=== PATIENT | male | born 1965 | race Caucasian/White ===

== ENCOUNTER 2017-05-27 23:04 | Emergency (ER) | payer MEDICARE ==
[~2017-05-27] VITALS: Ht 175.3 cm; Wt 169.6 kg
[~2017-05-27 23:04] MED LIST: ALBUTEROL SUL0.083 % IN; ALPRAZOLAM1 M1 PO; AMLODIPINE5 MG OR; AMLODIPINE5 MG PO; ATENOLOL25 MG PO; ATENOLOL50 MG PO; ATROVENT I0.5 MG/VIA IN; AVELOX400 MG OR; BUSPIRONE10 MG PO; CARDIZEM CD120 M1 PO; CARDIZEM CD240 MG PO; CHERATUSSIN PO; CIPRO500 MG PO; CIPROFLOXACN500 MG PO; CLINDAMYCIN150 MG PO; CLINDAMYCIN300 M1 PO; DIGOXIN0.125 MG PO; DILTIAZEM60 M1 PO; DUONEB IN; DUONEB NEB; EQ ASPIRIN325 MG PO; FLONASE0.05 %; FLUARIX QUADRIV1 IN1 IM; LASIX 40 MG TAB40 MG PO; LASIX40 MG PO; LEVAQUIN750 MG PO; LEXAPRO10 MG PO; LEXAPRO20 MG PO; LISINOP/HCTZ1 TA1 PO; LOSARTAN POT50 MG PO; MEDDOSEPAK OR; METHYLPRED4 M1 PO; METOPROL TAR25 MG PO; METOPROLOL TART50 MG PO; NO HOME MEDS; NORCO1 TA1 PO; PREDNISONE10 MG PO; PREDNISONE20 MG PO; PRILOSEC40 MG PO; PROVENTIL HFA IN; QVAR80 MCG IN; ROBITUSSIN AC10 ML PO; SOLU-MEDROL125 MG IM; TRAMADOL HCL50 MG PO; VENTOLIN HF1 IN; VENTOLIN HFA; XANAX0.5 MG PO; XARELTO10 MG PO; ZITHROMAX250 MG PO; ZITHROMAX500 MG PO
[2017-05-28] MEDS ORDERED: CLEOCIN150 MG PO (00:02)
[2017-05-28] MEDS ORDERED: PERCOCET 5/325M1 TAB PO (00:02)
[2017-05-28 01:10] VITALS: BP 143/88
== END 2017-05-28 01:10 | disposition home or self-care (01) ==
LOC: ED 23:04
DX: S90.212A Contusion of left great toe with damage to nail, initial encounter (principal); K21.9 Gastro-esophageal reflux disease without esophagitis; F32.9 Major depressive disorder, single episode, unspecified; I10 Essential (primary) hypertension; J44.9 Chronic obstructive pulmonary disease, unspecified; E66.01 Morbid (severe) obesity due to excess calories; I48.91 Unspecified atrial fibrillation; W22.8XXA Striking against or struck by other objects, initial encounter

== ENCOUNTER 2017-07-20 17:34 | Inpatient (IN) | payer MEDICARE ==
[~2017-07-20] VITALS: Ht 175.3 cm; Wt 158.4 kg
[~2017-07-20 17:34] MED LIST changes: +CLEOCIN150 MG PO; +PERCOCET 5/325M1 TAB PO
[2017-07-20] MEDS ORDERED: DILT-XR120 MG PO (17:56)
[2017-07-20] MEDS ORDERED: OMEPRAZOLE10 MG PO (17:57)
[2017-07-20] MEDS ORDERED: XARELTO10 MG PO (17:57)
[2017-07-20] MEDS ORDERED: K-TABS10 MEQ PO (18:01)
[2017-07-20] MEDS ORDERED: KLONOPIN0.5 MG PO (18:02)
[2017-07-20] MEDS ORDERED: LOSARTAN POT50 MG PO (18:02)
[2017-07-20 18:36] LABS: ALBUMIN 4.3 g/dL (3.2-5.0); ALKALINE PHOSPHATASE 119 u/l (38-126); ANION GAP 18 (6-22 (CALC)); BILIRUBIN, TOTAL 0.7 mg/dL (0.0-1.4); BUN 12 mg/dL (9-20); BUN/CREATININE RATIO 15 (12-20 (CALC)); CARBON DIOXIDE 25 mmol/l (22-30); CHLORIDE 101 mmol/l (95-108); CREATININE 0.8 mg/dL (0.7-1.3); GFR > 60 ML/MIN (>=60 (CALC)); GFR FOR AFR.AMER. > 60 ML/MIN (>=60 (CALC)); POTASSIUM 4.5 mmol/l (3.5-5.1); SGOT/AST 27 u/l (17-59); SGPT/ALT 32 u/l (21-72); SODIUM 140 mmol/l (137-146); TOTAL PROTEIN 7.2 g/dL (6.3-8.2)
[2017-07-20 18:47] LABS: MYOGLOBIN 56 ng/mL (0 - 121)
[2017-07-20 19:16] LABS: HEMATOCRIT 50.4 % (39.0-50.0); HEMOGLOBIN 16.6 g/dl (14.0-18.0); IMMATURE GRANULOCYTES 0.5 % (0.0-1.0); MEAN CELL VOLUME 79.4 fL CALC (80.0-100.0); MEAN CORPUSCULAR HGB 26.1 pG CALC (26.0-32.0); MEAN CORPUSCULAR HGB CONC 32.9 g/L CALC (32.0-36.0); NEUT# 6.45 thou/uL (1.82-7.42); RED BLOOD COUNT 6.35 mill/uL (4.70-6.10); RED CELL DISTRI WIDTH 13.9 % (11.5-15.5)
[2017-07-20 19:24] LABS: INFLUENZA A NONE DETECTED (NONE DETECT); INFLUENZA B NONE DETECTED (NONE DETECT)
[2017-07-20 21:45] VITALS: BP 150/88
[2017-07-21 03:53] VITALS: BP 137/95
[2017-07-21 08:12] VITALS: BP 145/80
[2017-07-21 15:33] VITALS: BP 152/66
[2017-07-21 19:01] VITALS: BP 163/90
[2017-07-22 05:02] VITALS: BP 132/52
[2017-07-22 05:37] LABS: HEMATOCRIT 50.1 % (39.0-50.0); HEMOGLOBIN 16.8 g/dl (14.0-18.0); MEAN CELL VOLUME 80.2 fL CALC (80.0-100.0); MEAN CORPUSCULAR HGB 26.9 pG CALC (26.0-32.0); MEAN CORPUSCULAR HGB CONC 33.5 g/L CALC (32.0-36.0); RED BLOOD COUNT 6.25 mill/uL (4.70-6.10); RED CELL DISTRI WIDTH 14.1 % (11.5-15.5)
[2017-07-22 05:54] LABS: ANION GAP 21 (6-22 (CALC)); BUN 17 mg/dL (9-20); BUN/CREATININE RATIO 23 (12-20 (CALC)); CARBON DIOXIDE 25 mmol/l (22-30); CHLORIDE 97 mmol/l (95-108); CREATININE 0.7 mg/dL (0.7-1.3); GFR > 60 ML/MIN (>=60 (CALC)); GFR FOR AFR.AMER. > 60 ML/MIN (>=60 (CALC)); SODIUM 138 mmol/l (137-146)
[2017-07-22 05:57] LABS: POTASSIUM 5.2 mmol/l (3.5-5.1)
[2017-07-22 09:37] VITALS: BP 148/96
[2017-07-22 15:02] VITALS: BP 135/78
[2017-07-22 18:58] VITALS: BP 149/97
[2017-07-22 21:19] VITALS: BP 147/106
[2017-07-23 04:40] VITALS: BP 142/96
[2017-07-23 06:26] LABS: HEMATOCRIT 53.9 % (39.0-50.0); HEMOGLOBIN 17.6 g/dl (14.0-18.0); MEAN CELL VOLUME 80.2 fL CALC (80.0-100.0); MEAN CORPUSCULAR HGB 26.2 pG CALC (26.0-32.0); MEAN CORPUSCULAR HGB CONC 32.7 g/L CALC (32.0-36.0); RED BLOOD COUNT 6.72 mill/uL (4.70-6.10); RED CELL DISTRI WIDTH 14.5 % (11.5-15.5)
[2017-07-23 06:37] LABS: ANION GAP 20 (6-22 (CALC)); BUN 24 mg/dL (9-20); BUN/CREATININE RATIO 33 (12-20 (CALC)); CARBON DIOXIDE 26 mmol/l (22-30); CHLORIDE 100 mmol/l (95-108); CREATININE 0.7 mg/dL (0.7-1.3); GFR > 60 ML/MIN (>=60 (CALC)); GFR FOR AFR.AMER. > 60 ML/MIN (>=60 (CALC)); MAGNESIUM 2.5 mg/dL (1.6-2.3); POTASSIUM 4.7 mmol/l (3.5-5.1); SODIUM 142 mmol/l (137-146)
[2017-07-23 09:35] VITALS: BP 164/97
[2017-07-23 16:00] VITALS: BP 148/60
[2017-07-23 18:58] VITALS: BP 147/90
[2017-07-24 04:47] VITALS: BP 131/83
[2017-07-24 05:28] LABS: HEMOGLOBIN 17.2 g/dl (14.0-18.0); IMMATURE GRANULOCYTES 1.4 % (0.0-1.0); MEAN CELL VOLUME 79.6 fL CALC (80.0-100.0); MEAN CORPUSCULAR HGB 26.3 pG CALC (26.0-32.0); MEAN CORPUSCULAR HGB CONC 33.1 g/L CALC (32.0-36.0); NEUT# 16.66 thou/uL (1.82-7.42); RED BLOOD COUNT 6.53 mill/uL (4.70-6.10); RED CELL DISTRI WIDTH 14.4 % (11.5-15.5)
[2017-07-24 05:42] LABS: ANION GAP 17 (6-22 (CALC)); BUN 24 mg/dL (9-20); BUN/CREATININE RATIO 34 (12-20 (CALC)); CARBON DIOXIDE 28 mmol/l (22-30); CHLORIDE 101 mmol/l (95-108); CREATININE 0.7 mg/dL (0.7-1.3); GFR > 60 ML/MIN (>=60 (CALC)); GFR FOR AFR.AMER. > 60 ML/MIN (>=60 (CALC)); POTASSIUM 4.5 mmol/l (3.5-5.1); SODIUM 141 mmol/l (137-146)
[2017-07-24 09:08] VITALS: BP 155/88
[2017-07-24 16:00] VITALS: BP 147/80
[2017-07-24] MEDS ORDERED: FLORASTOR250 M1 PO (17:17)
[2017-07-24] MEDS ORDERED: ROBITUSSIN AC10 ML PO (17:17)
[2017-07-24] MEDS ORDERED: LORTAB 5/3255 MG PO (17:17)
[2017-07-24] MEDS ORDERED: PREDNISONE10 MG PO (17:17)
[2017-07-24] MEDS ORDERED: CLEOCIN300 MG PO (17:17)
== END 2017-07-24 18:30 | disposition home or self-care (01) | DRG 190 ==
LOC: ED 17:34 → ED-I 20:28 → ED 20:56 → MS2 20:57
PROVIDERS: Emergency Medicine; Nurse Practitioner Family; ADMIT Internal Medicine; ATTEND Internal Medicine
PROC: 3E0234Z Introduction of Serum, Toxoid and Vaccine into Muscle, Percutaneous Approach (ICD-10-PCS; principal; 2017-07-22)
DX: J44.1 Chronic obstructive pulmonary disease with (acute) exacerbation (principal); I50.33 Acute on chronic diastolic (congestive) heart failure; E66.01 Morbid (severe) obesity due to excess calories; I48.2 Chronic atrial fibrillation; Z68.43 Body mass index [BMI] 50.0-59.9, adult; M84.68XA Pathological fracture in other disease, other site, initial encounter for fracture; I11.0 Hypertensive heart disease with heart failure; G47.33 Obstructive sleep apnea (adult) (pediatric); K04.7 Periapical abscess without sinus; R09.02 Hypoxemia; K05.4 Periodontosis; F32.9 Major depressive disorder, single episode, unspecified; K21.9 Gastro-esophageal reflux disease without esophagitis; S01.512A Laceration without foreign body of oral cavity, initial encounter; X58.XXXA Exposure to other specified factors, initial encounter; Z23 Encounter for immunization; Z79.01 Long term (current) use of anticoagulants; Z87.891 Personal history of nicotine dependence

== ENCOUNTER 2018-07-04 12:19 | Emergency (ER) | payer MEDICARE ==
[~2018-07-04] VITALS: Ht 175.3 cm; Wt 163.0 kg
[~2018-07-04 12:19] MED LIST changes: +CLEOCIN300 MG PO; +DILT-XR120 MG PO; +FLORASTOR250 M1 PO; +K-TABS10 MEQ PO; +KLONOPIN0.5 MG PO; +LORTAB 5/3255 MG PO; +OMEPRAZOLE10 MG PO
[2018-07-04 12:58] VITALS: BP 190/100
[2018-07-04] MEDS ORDERED: CLEOCIN300 MG PO (13:39)
[2018-07-04] MEDS ORDERED: BACTROBAN TOP (13:40)
== END 2018-07-04 13:50 | disposition home or self-care (01) ==
LOC: ED 12:19
PROC: 0HQGXZZ Repair Left Hand Skin, External Approach (ICD-10-PCS; principal; 2018-07-04)
DX: S61.221A Laceration with foreign body of left index finger without damage to nail, initial encounter (principal); I10 Essential (primary) hypertension; W29.8XXA Contact with other powered hand tools and household machinery, initial encounter; Y92.009 Unspecified place in unspecified non-institutional (private) residence as the place of occurrence of the external cause

== ENCOUNTER 2019-06-17 | Inpatient (IN) | payer MEDICARE ==
[2019-06-17] VITALS (33 sets, daily range): BP systolic 69–142; BP diastolic 47–90
[~2019-06-17] MED LIST changes: +BACTROBAN TOP
--- NOTE | 2019-06-17 00:21 | NUR ---
TO ROOM 12 VIA EMS STRETCHER, STATES WHEN HE CANNOT WWALK FROM THE LIVING ROOM TO THE KITCHEN, IT IS TIME TO GO TO THE DOCTORE
--- NOTE | 2019-06-17 00:30 | NUR ---
C/O PAINFUL LEGS. FOOT ACCIDENTLY TOUCHED BY MD. PT SCREAMED. LEGS GROSSLY EDEMATOUS AND WEEPING
[2019-06-17] MEDS ORDERED: METOLAZONE2.5 MG PO (00:55)
--- NOTE | 2019-06-17 00:56 | NUR ---
TALKING NONSTOP. WANTED WATER. 1 CUP OF WATER GIVEN AND DRANK RIGHT DOWN. DOES NOT WANT ANYONE TO TOUCH LEGS. COMPLIANCWE BY STAFF. WANTS TO GET UP AND WALK AROUND. SAT 82%. ENCOURAGED TO BREATHE ON WITH NONREBREATHER
--- NOTE | 2019-06-17 01:00 | NUR ---
PULLED OFF B/P CUFF. RECEIVING NEB TX RX. HAS REMOVED TX X 1. IV MEDS GIVEN RX
--- NOTE | 2019-06-17 01:30 | NUR ---
SECOND CUP OF ICE WATER TAKEN TO PATIENT WHO HAS REMOVED NONREBREATHER, AGAIN. EXPLAINED RATIONALE FOR TREATMENT AND EXPLAINED IF HE DID NOT RESPOND TO THIS RTEATMENT, BIPAP WOULD GENERALLY BE THE NEXT STEP. HE SAID, "NO.. HELL NO THAT AIN'T GOING TO HAPPEN... I WILL LEAVE THIS PLACE BEFORE YOU PUT ME ON THAT... IT AIN'T HAPPENING" REPOSITIONED NONREBREATHER AFTER HELPING PT DRINK HALF THE CUP OF WATER.
[2019-06-17 01:50] LABS: URINE BILIRUBIN - DIPSTICK NEGATIVE (NEGATIVE); URINE BLOOD DIPSTICK NEGATIVE (NEGATIVE); URINE COLOR YELLOW; URINE GLUCOSE - DIPSTICK NEGATIVE (NEGATIVE); URINE KETONE NEGATIVE (NEGATIVE); URINE LEUK ESTERASE NEGATIVE (NEGATIVE); URINE NITRITE - DIPSTICK NEGATIVE (Negative); URINE PH 5.5 (4.5-8.0); URINE PROTEIN - DIPSTICK NEGATIVE (NEG-TRACE); URINE SPECIFIC GRAVITY 1.025; URINE UROBILINOGEN - DIPSTICK 0.2 E.U./dL (0.2)
[2019-06-17 01:53] LABS: HEMATOCRIT 53.6 % (39.0-50.0); HEMOGLOBIN 17.9 g/dl (14.0-18.0); MEAN CORPUSCULAR HGB 26.2 pG CALC (26.0-32.0); MEAN CORPUSCULAR HGB CONC 33.4 g/L CALC (32.0-36.0); NEUT# 20.71 thou/uL (1.82-7.42); RED BLOOD COUNT 6.84 mill/uL (4.70-6.10); RED CELL DISTRI WIDTH 13.9 % (11.5-15.5)
[2019-06-17 01:57] LABS: IMMATURE GRANULOCYTES 6.5 % (0.0-5.0); MEAN CELL VOLUME 78.4 fL CALC (80.0-100.0)
[2019-06-17 02:07] LABS: BILIRUBIN, TOTAL 2.5 mg/dL (0.0-1.4); CREATININE 1.8 mg/dL (0.7-1.3); POTASSIUM 3.2 mmol/l (3.5-5.1); TOTAL PROTEIN 7.9 g/dL (6.3-8.2)
--- NOTE | 2019-06-17 02:10 | NUR ---
PT SITTING WITH RIAL DOWN AND LLEGT LEG HANGING OFF BED
--- NOTE | 2019-06-17 02:30 | NUR ---
TO HOSPITAL BED-FOR COMFORT
--- NOTE | 2019-06-17 02:36 | NUR ---
DISCUSSED ADMISSION WITH PATIENT
--- NOTE | 2019-06-17 02:40 | NUR ---
VOIDED 600ML STRAW URINE
--- NOTE | 2019-06-17 02:58 | NUR ---
FOOT OF BED ELEVATED FOR LEG PAIN. RESTING ON ABDOMEN. IV ANTIBIOTIC INFUSING RX
--- NOTE | 2019-06-17 03:30 | NUR ---
ADMITTED MS TELEMETRY BUT HOLDING IN ER. HOSPITAL BED PROVIDED FOR MORE COMFORT
--- NOTE | 2019-06-17 04:00 | NUR ---
RECEIVING IV ANTIBIOTICS RX-TOLERATING WELL
--- NOTE | 2019-06-17 05:00 | NUR ---
PT PULLED OUT EMS IV SITE WHILE TAKING SHIRT OFF. CURRENTLY ROOM ON COLDEST SETTING. PT WEARING ONLY BOXER SHORTS. PT CURSING ABOUT TOO HOT IN HERE. HE HAS PULLED OFF NURSERY LABORER PADS AGAIN. IV ANTIBIOTIC CONTINUES TO INFUSE RX. ANOTHER CUP OF WATER TAKEN TO PATIENT. ATTEMPTED TO EDUCATE PT ABOUT CONDITION- JUST GIVEN LASIX AND HE IS WANTING TO DRINK WATER CONSTANTLY... THAT THE MEDICATION CANNOT HELP HIM TO BREATHE ANY EASIER IF HE CONSUMES SO MUSCH FLUIDS. HE DID NOT WANT TO HEAR- HE INTERUPTED ME AND SAID THAT HE DID NOT CARE. HE IS THIRSTY WITH THE OXYGEN AND REFUSED TO STAY IN THE ER IF IT IS THIS HOT
--- NOTE | 2019-06-17 06:58 | NUR ---
RECEIVED PT SITTING UP ON SIDE OF BED RECIEVING [facility]. INTRODUCED SELF TO PT. VITAL SIGNS OBTAINED.PT WITH TACHYPNEA AND NOTABLE DROP IN BP. BP 76/42. PT ALERT AND RESPONSIVE APPROPRIATELY. LOWER EXTREMITIES TAUGHT AND SWOLLEN. REDNESS UP BOTH LEGS INTO THIGHS.
--- NOTE | 2019-06-17 06:58 | NUR ---
RECEIVED PT SITTING UPRIGHT ON BED WITH FEET DANGLING RECEIVING NEB TX. INTRODUCED SELF TO PT. VS OBTAINED. PT WITH TACHYPNEA AND NOTABLE DROP IN BP, BP 76/42. PT ALERT AND RESPONSIVE WITH DIMINISHED BREATH SOUNDS, RESPONDS APPROPRIATELY. LOWER EXTREMITIESTAUGHT AND SWOLLEN WITH REDNESS UP BOTH LEGS FROM FEET TO THIGHS BILAT.
--- NOTE | 2019-06-17 07:11 | NUR ---
SPOKE WITH DR ZELAYA WHO ORDERED ALBUMIN GTT AND OBSERVE.
--- NOTE | 2019-06-17 07:11 | NUR ---
SPOKE WITH DR ZELAYA AND ADVISED OF PTS CONDITION. NEW ORDERS RECEIVED FOR ALBUMIN GTT AND OBSERVE.
--- NOTE | 2019-06-17 07:15 | NUR ---
DR GARIBAY SPOKE WITH DR ZELAYA CONCERNING PT , DR ZELAYA AGREEABLE TO CENTRAL LINE PLACEMENT, PHENYLEPHERINE PUSH AND LEVOPHED GTT PER PROTOCOL NEEDED.
--- NOTE | 2019-06-17 07:15 | NUR ---
CALL PLACED TO DR ZELAYA AND DR GARIBAY SPOKE WITH . DR ZELAYA AGREEABLE TO CENTRAL LINE INSERTION, PHENYLPHRINE PUSH AND LEVOPHED GTT PER PROTOCOL NEEDED TO MAINTAIN BP.
--- NOTE | 2019-06-17 07:42 | NUR ---
DR GARIBAY AT BEDSIDE , CENTRAL LINE INSERTED RT GROIN. PT TOLERATED WELL. 0742 INITIATED PHENYLPHERINE PUSH 100MG IV 0748 INITIATED IV LEVOPHED GTT AT 8MCG/MIN PER PROTOCOL
--- NOTE | 2019-06-17 08:10 | NUR ---
BIPAP INITIATED, PT TOLERATING WELL. INCREASED LEVOPHED GTT FROM 11MCG/MIN TO 12 MCG/MIN.
--- NOTE | 2019-06-17 08:11 | NUR ---
CALLED DR CAO TO UPDATE ON PTS CONDITION. ORDERS RECEIVED TO HOLD ALBUMIN AND MD STATES HE WILL CHANGE PT TO ICU ADMIT.
--- NOTE | 2019-06-17 08:40 | NUR ---
INITIATED FC 18/03 FOR ACCURATE I&0
--- NOTE | 2019-06-17 09:00 | NUR ---
RECVD REPORT ON PT FOR CONTINUATION OF CARE. ASKED ER TO HOLD PT UNTIL ANOTHER ROOM WAS CLEARED FOR A WEIGH BED. WAS INFORMED PT WAS ALREADY ON WEIGH BED BUT BED NOT ZERO'D PRIOR TO PLACEMENT.
--- NOTE | 2019-06-17 09:00 | NUR ---
TRANSPORTED TO ICU ON BIPAP AND LEVOPHED GTT. PT ALERT AND RESPONSIVE IN NO DISTRESS
--- NOTE | 2019-06-17 09:11 | NUR ---
PT ARRIVED TO ICU7 BY BED WITH IV, BIPAP, & TELE. PT CONNECTED TO OUR MONITORS. EDUCATED ON CALLBELL & BED CONTROLS.
--- NOTE | 2019-06-17 09:50 | NUR ---
PT UP TO BSC FOR POSSIBLE BM. ASSIST x1. LINENS CHANGED. PT REQUIRED FREQUENT "BREAKS TO CAPTURE HIS BREATH" BEFORE GETTING UP TO BSC.
--- NOTE | 2019-06-17 10:00 | NUR ---
PT PRESENTED TO [facility] ER FOR SOB. C/O COUGH WITH THICK GREEN MUCOS THAT IS HARD TO GET UP. PT A&Ox4. STATES HX OF COMA FOR 6 WKS FOR H1N1 & PNA. ALLERGY TO PCN- GETS A RASH. HX OF BLOOD TRANSFUSION, NO REACTION, NO OBJECTION. VERIFIED MEDICAL & SURGICAL HX IN CHART. DENIES HEARING AIDS, WEARS READING GLASSES, HAD UPPER DENTURES. DENIES SMOKING, ALCOHOL, & REC DRUGS. HAS NOT HAD THE FLU VACCINE BUT WANTS IT. HAS RECENTLY HAD THE PNA VACCINE. LAST BM WAS LAST NIGHT. DOES NOT NEED LAXATIVES. SKIN ALTERATIONS TO BLE, WEEPING TO LEFT LOWER LEG & PINK/HOT AREA TO RIGHT UPPER LEG. DENIES RECENT FALLS. DENIES USING A MOBILITY AIDE. LIVES AT HOME WITH HIS , DRIVE HIMSELF. C/O PAIN TO BLE; USES BC POWDER FOR PAIN AT HOME. NONDENOMINATIONAL: YAZIDI. PRIMARY LAO: LAO. DENIES HOME HEALTH, DENIES RECENT HOSPITAL ADMISSION.
--- NOTE | 2019-06-17 10:10 | NUR ---
PT UP TO SIDE OF BED, RESTING BEFORE LYING BACK IN BED.
--- NOTE | 2019-06-17 10:20 | NUR ---
PT GIVEN WATER,
--- NOTE | 2019-06-17 10:22 | NUR ---
PT @BEDSIDE FOR ABG.
--- NOTE | 2019-06-17 10:37 | NUR ---
FIO2 DECREASED TO 35% ON BIPAP
--- NOTE | 2019-06-17 10:42 | NUR ---
PT REQUEST PAIN MEDS FOR BLE PAIN. TAKES BC POWDER AT HOME. WAITING ON NEW ORDERS.
--- NOTE | 2019-06-17 10:55 | NUR ---
PT ASSISTED BACK ON BSC TO TRY AGAIN FOR BM.
--- NOTE | 2019-06-17 11:08 | NUR ---
HAVING TROUBLE GETTING PTS BP TO WORK. WILL CONTINUE TO MONITOR.
--- NOTE | 2019-06-17 12:23 | NUR ---
DR CAO @BEDSIDE FOR ASSESSMENT, DISCUSSING POC. ACEWRAP REMOVED FROM LEFT LOWER LEG, NO WOUNDS NOTED ONLY WEEPING FROM EDEMA.
--- NOTE | 2019-06-17 13:24 | NUR ---
@BEDSIDE, UPDATED ON POC & PT STATUS. GIVEN CODE
[2019-06-17] MEDS ORDERED: ADVAIR DISK1 INH (15:38)
--- NOTE | 2019-06-17 15:45 | NUR ---
S: KY IRIZARRY is a 53 M who presents with pneumonia. He has a history of HTN, AFib, COPD, and tracheal stenosis. All medications in patient's chart were reviewed. O: VS: BP: 105/72 mmHg, P: 118 beats/min, RR: 22 breaths/min, T: 97.1 F W: 150 kg, HT: 69 in, Scr: 1.8 mg/dL, CrCl: 53.6 ml/min A: Blood culture is pending. P: Patient is on aztreonam 2 gm IV Q8H. Vancomycin ordered for pharmacy to dose. Start Vancomycin 1250 mg IV Q12H. Vancomycin trough is drawn before the 4th dose on 06/19/19 at 02:30. Vancomycin goal trough is between 15-20 mcg/ml. Pharmacy will follow and or advise on antibiotics use as needed.
--- NOTE | 2019-06-17 16:22 | NUR ---
RBVO DR CAO FOR XANAX 0.5MG PO. FAXED TO PHARMACY.
--- NOTE | 2019-06-17 16:39 | NUR ---
PT SLEEPING IN BED ON BACK, BIPAP ON. NO S/S OF DISTRESS. CALLBELL ON ABD. WILL CONTINUE TO MONITOR.
--- NOTE | 2019-06-17 17:39 | NUR ---
DR CAO @BEDSIDE, UPDATING PT & .
--- NOTE | 2019-06-17 17:47 | NUR ---
PT FREQUENTLY REMINDED TO KEEP NC ON.
--- NOTE | 2019-06-17 18:03 | NUR ---
MEDICATION HELD D/T PT SLEEPING.
--- NOTE | 2019-06-17 19:45 | NUR ---
REPORT RECEIVED FROM DANUTA MARSHALL. PT RESTING IN SEMI FOWLERS WITH EYES CLOSED AND BIPAP IN PLACE; NO SIGNS OF DISTRESS; AWAKENS TO VERBAL STIMULI. BIPAP REMOVED AND PT PLACED ON 4L VIA NC FOR ASSESSMENT. C/O 7/10 PAIN TO RLE; REPORTS THAT LORTAB WAS EFFECTIVE AND HELPED HIM GO TO SLEEP. RESPIRATIONS SHALLOW, EVEN, AND UNLABORED. ORIENTED X 4. LUNGS ARE CLEAR; HR IRREGULAR. MORBID OBESE; ABD DISTENDED AND SOFT. LEVOPHED DRIP INFUSING AT 10 MCG/MIN; BP STABLE AT 103/57 HR 114; MAINTENANCE FLUIDS INFUSING AT 100ML/HR. SINUS TACH ON PIPELINE INSPECTOR WITH PACS. TRIPLE LUMEN TO RIGHT FEMORAL INTACT; DRESSING CDI. PERIPHERAL IV SITE TO LFA. BLE ARE DISCOLORED AND WARM TO TOUCH WITH 2+ PITTING EDEMA; SMALL OPEN AREA TO LEFT SU DRAINING SEROUS FLUIDS; WEAK PEDAL PULSES; CAP REFILL <SEC; FEET COOL WITH CALLUSED SKIN. STEPHENS CATHETER DRAINING KELLEE URINE IN ADEQUATE AMOUNTS. SCHEDULED XARALTO GIVEN; PT DECLINES XANAX AT THIS TIME ASKING IF HE CAN HAVE IT LATER FOR HIS ANXIETY. PLAN OF CARE REVIEWED. PT ENCOURAGED TO VERBALIZE CONCERNS. STATES UNDERSTANDING. SAFETY MEASURES IN PLACE. CALL LIGHT WITHIN REACH.
--- NOTE | 2019-06-17 20:00 | NUR ---
LORTAB GIVEN FOR RLE PAIN. PT NOW SITTING UP ON EDGE OF BED WITH FEET ON THE FLOOR. SNACK PROVIDED AND WATER. 93% SPO2 WITH 4L ON. TOBACCO CHECKOUT CLERK 113/59.
--- NOTE | 2019-06-17 20:45 | NUR ---
LEVOPHED TITRATED UP TO 11 MCG/MIN FOR BP OF 82/61 WITH F/U OF 102/70. AWARE OF BP.
--- NOTE | 2019-06-17 20:48 | NUR ---
PT REQUESTING BREATHING TREATMENT DUE TO INCREASED FLEM; REPORTS THAT AT HOME HE USES AN INHALER TO OPEN HIS AIRWAYS WHEN HE BECOMES CONGESTED. PT COUGHING AND ATTEMPTING TO EXASPERATE SPUTUM WITHOUT SUCCESS. NEW ORDER RECEIVED FOR DUONEB; PT BECOMING INCREASINGLY ANXIOUS AND STATES THAT HE HAS TO HAVE A BREATHING TREATMENT SOON. RT AT BEDSIDE TO EVALUATE AND GIVEN TREATMENT.
--- NOTE | 2019-06-17 21:19 | NUR ---
AT BEDSIDE. XANAX GIVEN FOR ANXIETY. PT FEELING BETTER AFTER BREATHING TREAMTENT AND COUGHING UP THICK YELLOW SPUTUM. ASKING FOR HIS VENTOLIN INHALER.
--- NOTE | 2019-06-17 21:59 | NUR ---
NEW ORDERS RECEIVED; ADDITIONAL DOSE OF LASIX ADMINISTERED AT THIS TIME. VENTOLIN INHALER ALSO GIVEN PER PT REQUEST TO ASSIST IN SPUTUM EXPECTORATION. PT WANTS TO SIT UP FOR A WHILE LONGER TO ATTEMPT TO COUGH AND THEN HE WANTS TO BACK ON THE BIPAP TO SLEEP.
--- NOTE | 2019-06-17 22:17 | NUR ---
BIPAP ON AT 35% FIO2. PT NOW RESTING IN BED SEMI FOWLERS.
--- NOTE | 2019-06-17 22:45 | NUR ---
RT AT BEDSIDE FOR BREATHING TREATMENT.
--- NOTE | 2019-06-17 23:52 | NUR ---
LACTIC ACID IS 3.2; DR. CAO NOTIFIED OF CRITICAL LAB. NEW ORDERS TO CONTINUE MAINTENACE FLUIDS AND REPEAT LACTIC IN 2 HOURS. PT REMAINS AFIB RVR ON THEATRICAL RIGGER; HR 122. WILL CONTINUE TO MONITOR.
[2019-06-18] VITALS (45 sets, daily range): BP systolic 78–150; BP diastolic 45–103
--- NOTE | 2019-06-18 00:56 | NUR ---
LEVOPHED TIRATED DOWN TO 7 MCG/MIN; HEART RATE INCREASED TO A MAX OF 150 BPM AND A LOW OF 114; WILL CONTINUE TO MONITOR HEART RATE WHILE WEANING LEVOPHED. CURRENT BP OF 133/75. PT RESTING WITH BIPAP IN PLACE. HAS REQUESTED MASK REMOVAL FOR SIPS OF WATER; OTHERWISE TO REQUESTS OR CONCERNS.
--- NOTE | 2019-06-18 01:59 | NUR ---
LEVOPHED DRIP TITRATED DOWN TO 6 MCG/MIN; HEART RATE CONTINUES TO INCREASE INTO THE 140'S AND 150'S. PT ASLEEP; WILL CONTINUE TO MONITOR.
--- NOTE | 2019-06-18 02:36 | NUR ---
BLOOD PRESSURE DECREASED DOWN TO 87/58; LEVOPHED TITRATED BACK UP TO 8 MCG/MIN.
--- NOTE | 2019-06-18 03:21 | NUR ---
PT CALLED FOR NURSE; VERY ANXIOUS STATING THAT HE NEEDED TO SIT UP ON THE EDGE OF THE BED AND REMOVE THE MASK. ASSISTED PT INTO SITTING POSITION; LORTAB AND XANAX GIVEN.
--- NOTE | 2019-06-18 03:32 | NUR ---
DR. CAO NOTIFIED OF SUSTAINED ELEVATED HEART RATE; NEW ORDER RECEIVED FOR CARDIZEM IVP AND IF INEFFECTIVE MAY INITIATE CARDIZEM GTT PER PROTOCOL. PT UPDATED ON NEW ORDERS.
[2019-06-18 05:32] LABS: HEMATOCRIT 48.4 % (39.0-50.0); MEAN CELL VOLUME 78.7 fL CALC (80.0-100.0); MEAN CORPUSCULAR HGB 25.7 pG CALC (26.0-32.0); MEAN CORPUSCULAR HGB CONC 32.6 g/L CALC (32.0-36.0); PLATELET COUNT 264 thou/uL (130-400); RED BLOOD COUNT 6.15 mill/uL (4.70-6.10); RED CELL DISTRI WIDTH 14.2 % (11.5-15.5)
--- NOTE | 2019-06-18 05:40 | NUR ---
CARDIZEM BOLUS EFFECTIVE, BUT HEART RATE REMAINS IN THE 120'S-130'S. CARDIZEM DRIP INITATED AT THIS TIME AT 10MG/HR PER PROTOCOL. LEVOPHED ALSO CONTINUES TO INFUSE AT 9 MCG/JOSE. PT RESTING WITH BIPAP ON AFTER ASSISTED BACK, LINEN CHANGE, AND ORAL CARE. LABS DRAWN FROM CENTRAL LINE AND FLUSHED PER PROTOCOL.
--- NOTE | 2019-06-18 05:54 | NUR ---
RT AT BEDSIDE FOR BREATHING TREATMENT.
[2019-06-18 06:10] LABS: BILIRUBIN, TOTAL 1.6 mg/dL (0.0-1.4); CREATININE 1.5 mg/dL (0.7-1.3); POTASSIUM 3.6 mmol/l (3.5-5.1)
[2019-06-18 06:11] LABS: TOTAL PROTEIN 6.3 g/dL (6.3-8.2)
[2019-06-18 06:26] LABS: HEMOGLOBIN 15.8 g/dl (14.0-18.0); MANUAL DIFFERENTIAL YES
[2019-06-18 06:35] LABS: BAND 34 % (0-8)
--- NOTE | 2019-06-18 06:40 | NUR ---
LEVOPHED TITRATED UP TO 10 MCG/MIN.
--- NOTE | 2019-06-18 07:53 | NUR ---
Critical results of 2/2 blood cultures growing gram positive cocci called to Dr Warner. Pt is currently on Azactam and Vancomycin. No new orders received.
--- NOTE | 2019-06-18 08:21 | NUR ---
DR CAO @BEDSIDE ASSESSING PT. BIPAP REMOVED, REPLACED WITH 4L NC. PT SITTING UP IN BED, EATING BREAKFAST. WILL DC CARDIZEM DRIP AFTER PO BP MEDS STARTED.
--- NOTE | 2019-06-18 08:44 | NUR ---
RBVO FOR CADIO & ID CONSULT. DR RODRIGUEZ NOTIFIED
--- NOTE | 2019-06-18 09:00 | NUR ---
TELE ID CONSULT PLACED. MD AWARE OF SAT OF 88% ON 4L NC (PT SLEEPING)
--- NOTE | 2019-06-18 10:12 | NUR ---
PT EDUCATED ON MEDICATION. WEEPING AREA ON LEFT LOWER LEG WRAPPED. PT REFUSED BREAKFAST, REQUESTS JELLO.
--- NOTE | 2019-06-18 12:33 | NUR ---
BRET, CARDIO ARMAMENT INSTALLER, @BEDSIDE ASSESSING PT.
--- NOTE | 2019-06-18 13:55 | NUR ---
FIO2 INCREASED TO 50% POST ABG RESULTS. DR. CAO NOTIFIED OF ABG RESULTS AND OF CHANGES MADE TO BIPAP.
--- NOTE | 2019-06-18 15:24 | NUR ---
PT RESTING IN BED, ON BIPAP, VSS, CALLBELL ON ABD, WILL CONTINUE TO MONITOR.
--- NOTE | 2019-06-18 16:54 | NUR ---
CONSULT WITH ID DR COY COMPLETED WITH & PT. RECOMMENDS SURGICAL CONSULT FOR POSSIBLE NECROTIZING FASCIITIS. WILL ADD ANOTHER ABX. DR CAO & DEPT TYPEWRITER TESTER NOTIFIED. CONTACT PRECAUTIONS STARTED.
--- NOTE | 2019-06-18 17:06 | NUR ---
DR CASTRO CALLED R/T SURGICAL CONSULT.
--- NOTE | 2019-06-18 17:49 | NUR ---
DR CAO @BEDSIDE, ASSESSING PT.
--- NOTE | 2019-06-18 17:51 | NUR ---
PM BLOOD THINNER & DINNER HELD UNTIL SURGICAL CONSULT.
--- NOTE | 2019-06-18 18:23 | NUR ---
DR CASTRO @BEDSIDE, ASSESSING PT, WILL CONSULT WITH DR CAO FOR POC
--- NOTE | 2019-06-18 18:45 | NUR ---
PT SITTING ON SIDE OF BED, ON 6L NC.
--- NOTE | 2019-06-18 18:55 | NUR ---
RBVOT FROM DR CAO TO TRANSFER PT TO [facility] FOR SEPTIC SHOCK, CELLULITIS, PNA. INITIATED TRASNFER WITH ELIJAH @ [facility]
--- NOTE | 2019-06-18 19:10 | NUR ---
BEDSIDE REPORT RECEIVED FROM DANUTA MARSHALL. PT SITTING UP ON EDGE OF BED AND REPOSITIONING HIMSELF TO BEDSIDE CHAIR. ALERT AND ORIENTED. C/O 9/10 RLE PAIN; REDNESS, WARMTH, AND BLISTERS NOTED TO EFFECTED AREA. RESPIRATIONS LABORED WITH EXERTION ON 02 6L. LEVOPHED INFUSING AT 10 MCG/MIN; AMIODARONE INFUSING AT 0.5 MG/MIN; MAINTENANCE FLUIDS INFUSING AT 100 ML/HR; TRIPLE LUMEN TO RIGHT FEM APPEARS HEALTHY AND DRESSING IS CDI. PT IS ANXIOUS; AT BEDSIDE. ASSESSMENT COMPLETED AND PLAN OF CARE REVIEWED INCLUDING PENDING TRANSPORT TO [facility]. ALL QUESTIONS ANSWERED TO SATISFACTION. SAFETY MEASURES IN PLACE. CALL LIGHT WITHIN REACH.
--- NOTE | 2019-06-18 21:08 | NUR ---
SPOKE WITH MADELINE FROM [facility]. FAXED FACE SHEET AGAIN. DR. LÓPEZ WILL BE ACCEPTING PHYSICAIAN. MADELINE STATES THAT A BED WILL BE ASSIGNED [place] BUT IT MAY BE TOMORROW BEFORE THERE IS AN AVAIABLE BED IN ICU.
--- NOTE | 2019-06-18 21:09 | NUR ---
PT UP TO BSC FOR BM; AT BEDSIDE TO ASSIST. MORE BLISTERS AND INCREASED REDNESS TO BLE ESPECIALLY RLE; LARGE BLISTERS NOW OPEN; PHOTOS TAKEN AND PLACED IN CHART.
--- NOTE | 2019-06-18 21:59 | NUR ---
BP 82/63; LEVOPHED TITRATED UP TO 12 MCG/MIN. HR 115.
--- NOTE | 2019-06-18 22:53 | NUR ---
MADELINE CALLED FROM [facility] WITH BED #5C BED 4 ICU. PHONE # FOR REPORT [phone] CAO UPDATED ON TELEPHONE.
--- NOTE | 2019-06-18 23:08 | NUR ---
[facility] NOTIFIED OF TRANSPORT; ETA OF 1 HOUR. MADELINE AT [facility] UPDATED.
--- NOTE | 2019-06-18 23:18 | NUR ---
KAREN UPDATED WITH ROOM # AND TRANSPORT ETA.
[2019-06-19] VITALS: BP 99/67
[2019-06-19 00:30] VITALS: BP 99/57
--- NOTE | 2019-06-19 00:59 | NUR ---
[facility] ARRIVED; PT WILL NOT FIT STRETCHER. BRINGING LARGER STRETCHER; UNKNOWN ETA.
[2019-06-19 01:00] VITALS: BP 108/68
[2019-06-19 01:30] VITALS: BP 99/63
[2019-06-19 02:00] VITALS: BP 107/52
[2019-06-19 02:30] VITALS: BP 107/72
--- NOTE | 2019-06-19 02:46 | NUR ---
[facility] TRANSPORT AT BEDSIDE. PT ASSISTED TO STRETCHER WITH 5 PERSON ASSIST.
--- NOTE | 2019-06-19 02:48 | NUR ---
Discharge instructions given. Patient verbalizes understanding of same. Discharged in stable condition via [facility] to [facility]. Lortab and Xanax given prior to transport. All belongings sent with pt.
--- NOTE | 2019-06-19 03:03 | NUR ---
REPORT GIVEN TO BERNY AT [facility]. UPDATED.
== END 2019-06-19 02:47 | disposition short-term general hospital (02) | DRG 871 ==
PROVIDERS: Emergency Medicine; Internal Medicine; ADMIT Internal Medicine
PROC: 06HY33Z Insertion of Infusion Device into Lower Vein, Percutaneous Approach (ICD-10-PCS; principal; 2019-06-17)
PROC: 5A09457 Assistance with Respiratory Ventilation, 24-96 Consecutive Hours, Continuous Positive Airway Pressure (ICD-10-PCS; 2019-06-17)
DX: A40.0 Sepsis due to streptococcus, group A (principal); J18.9 Pneumonia, unspecified organism; I50.33 Acute on chronic diastolic (congestive) heart failure; R65.21 Severe sepsis with septic shock; J44.1 Chronic obstructive pulmonary disease with (acute) exacerbation; N17.9 Acute kidney failure, unspecified; E66.2 Morbid (severe) obesity with alveolar hypoventilation; Z68.43 Body mass index [BMI] 50.0-59.9, adult; I42.9 Cardiomyopathy, unspecified; J44.0 Chronic obstructive pulmonary disease with (acute) lower respiratory infection; L03.116 Cellulitis of left lower limb; L03.115 Cellulitis of right lower limb; I95.9 Hypotension, unspecified; I48.91 Unspecified atrial fibrillation; I11.0 Hypertensive heart disease with heart failure; Z87.891 Personal history of nicotine dependence; Z79.01 Long term (current) use of anticoagulants; Z88.0 Allergy status to penicillin
CPT/HCPCS: J0282; J3370; P9047; Q3014; S0073